=== PATIENT | female | born 1965 | race Caucasian/White ===

== ENCOUNTER 2018-07-23 20:18 | Emergency (ER) | payer OTHER ==
[~2018-07-23] VITALS: Wt 83.9 kg
[~2018-07-23 20:18] MED LIST: MOTRIN600 MG PO; SYNTHROID,LEVO25 MCG PO
[2018-07-23] MEDS ORDERED: IBU800 MG PO (20:43)
[2018-07-23] MEDS ORDERED: CEPHALEXIN500 M1 PO (20:43)
[2018-07-23] MEDS ORDERED: SEPTDS PO (20:43)
== END 2018-07-23 20:53 | disposition home or self-care (01) ==
LOC: ED 20:18
DX: L02.415 Cutaneous abscess of right lower limb (principal); Z79.899 Other long term (current) drug therapy

== ENCOUNTER → 2019-11-10 | Outpatient (CLI) | payer OTHER ==
[~2019-11-10] MED LIST changes: +CEPHALEXIN500 M1 PO; +IBU800 MG PO; +SEPTDS PO
== END | disposition home or self-care (01) ==
LOC: MAMMO 08:24 → US 09:30
PROVIDERS: ATTEND Internal Medicine
DX: Z12.31 Encounter for screening mammogram for malignant neoplasm of breast (principal); I74.4 Embolism and thrombosis of arteries of extremities, unspecified

== ENCOUNTER → 2020-05-18 | Outpatient (CLI) | payer OTHER | END | disposition home or self-care (01) | LOC: RAD 12:56 | PROVIDERS: ATTEND Internal Medicine | DX: M51.36 Other intervertebral disc degeneration, lumbar region (principal) ==

== ENCOUNTER 2021-08-16 08:24 | Emergency (ER) | payer OTHER ==
[~2021-08-16] VITALS: Ht 170.1 cm; Wt 90.7 kg
[2021-08-16] MEDS ORDERED: FLONASE ALLERG9.9 ML NAS (09:58)
== END 2021-08-16 10:00 | disposition home or self-care (01) ==
LOC: ED 08:24
DX: R05.3 Chronic cough (principal); Z79.899 Other long term (current) drug therapy

== ENCOUNTER → 2022-09-18 | Outpatient (CLI) | payer OTHER ==
[~2022-09-18] MED LIST changes: +AVPAK AZITHROM250 M1 PO; +FLONASE ALLERG9.9 ML NAS; +PREDNISONE10 MG PO
== END | disposition home or self-care (01) ==
LOC: MAMMO 09-07 08:30
PROVIDERS: ATTEND Internal Medicine
DX: Z12.31 Encounter for screening mammogram for malignant neoplasm of breast (principal); N64.9 Disorder of breast, unspecified